=== PATIENT | male | born 1955 | race Caucasian/White ===

== ENCOUNTER 2022-01-11 15:08 | Outpatient (CLI) | payer MEDICARE, BC, SELFPAY ==
--- NOTE | ~2022-01-11 | XR_ITS ---
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 Moderate bilateral trapeziometacarpal arth ritis. EXAM: XR hand BI arthritis min 3V HISTORY: POLYARTHRALGIA,X1 MONTH WORSENING,MORE PAIN RT HAND COMPARISON: None available FINDINGS: Normal mineralization. No subluxation. No fracture or dislocation. Moderate narrowing and sclerosis at the bilateral trapeziometacarpal joints, worse on the right. Mild scattered degenerative narrowing in the interphalangeal joints bilaterally indicative of mild osteoarthritic change in the fingers. Right scapholunate widening. Moderate right radial carpal narrowing. Abnormal scapholunate a nd capitolunate angles on the right. 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 Moderate bilateral trapeziometacarpal arthritis. Reviewed, dictated and finalized at location K.
== END 2022-01-11 15:09 | disposition home or self-care (01) ==
LOC: ANHIMG 15:18
PROVIDERS: PCP Internal Medicine; Visit Provider Physician Assistant
DX: M19.031 Primary osteoarthritis, right wrist (principal); M19.032 Primary osteoarthritis, left wrist
CPT/HCPCS: 73130

== ENCOUNTER 2022-02-14 07:00 | Outpatient (CLI) | payer MEDICARE, SELFPAY ==
--- NOTE | ~2022-02-14 | XR_ITS ---
XR knee RT 3V DATE: 02/14/2022 07:25 INDICATION: Right knee pain for several months. No injury. TECHNIQUE: 3 views COMPARISON: None FINDINGS: Moderately large suprapatellar joint effusion is noted. No fracture or dislocation, radiopaque intra-articular loose body or chondrocalcinosis is noted. Ther e is mild periarticular spurring at the patella and minimal medial and lateral compartment periarticu lar spurring.. No fracture or dislocation, periosteal reaction or bone destruction. IMPRESSION: Moderately large suprapatellar knee joint effusion Mild tricompartment osteoarthritis Reviewed, dictated and finalized at location A.
== END 2022-02-14 07:01 | disposition home or self-care (01) ==
PROVIDERS: PCP Internal Medicine; Visit Provider Physician Assistant
DX: M24.561 Contracture, right knee (principal); M17.11 Unilateral primary osteoarthritis, right knee
CPT/HCPCS: 73562